=== PATIENT | female | born 2000 | race Caucasian/White ===

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

== ENCOUNTER 2022-07-17 20:10 | Emergency (ER) | payer SELFPAY ==
[~2022-07-17] VITALS: Ht 167 cm; Wt 54.4 kg
--- NOTE | 2022-07-17 20:41 | ED Cardiac General ---
History of Present Illness General Chief Complaint: Cardiac/General Problems Stated Complaint: HEART PALPITATIONS Source: patient Exam Limitations: no limitations History of Present Illness Date Seen by Provider: Jul 17, 2022 Time Seen by Provider: 20:33 Initial Comments 22-year-old female who is otherwise healthy presents for palpitations. She saw Dr. Mcconnell over a year ago for similar symptoms but it seemed to get better so she did not follow-up. It was recommended she get a Holter monitor but she did not have it completed. She comes in because she got a persistent tachycardia alert from her watch. She states her heart rates been in the 160s off-and-on for the last several hours though averaging around 1 20-1 30. She feels palpitations but no chest pain. No shortness of breath. No dizziness or lightheadedness. No heavy menses or other bleeding. She does use up to 200 mg of caffeine daily by drinking energy drinks. I asked her very explicitly about any other medications supplements or illicit substances. She denies this however she did tell the nurse that she had taken Adderall this morning. She has taken this in the past did not have similar issues. All other systems reviewed and negative except documented per HPI. Voice recognition software was used to help create this chart Allergies and Home Medications Allergies Uncoded Allergies: NKDA (Allergy, Mild, 03/09/09) Patient Home Medication List Home Medication List Reviewed: Yes No Active Prescriptions or Reported Meds Review of Systems Review of Systems Constitutional: no symptoms reported Past Feeonaf-Uteuba-Uxozhb Hx Patient Social History Tobacco Use?: No Use of E-Cig and/or Vaping dev: No Substance use?: No Alcohol Use?: No Immunizations Up To Date Tetanus Booster (TDap): Less than 5yrs PED Vaccines UTD: Yes Seasonal Allergies Seasonal Allergies: No Past Medical History Surgeries: No Respiratory: No Cardiac: Yes (Msrfans syndrome trait.) Neurological: No Reproductive Disorders: No Female Reproductive Disorders: Denies Sexually Transmitted Disease: No HIV/AIDS: No Gastrointestinal: No Musculoskeletal: No Endocrine: No Cancer: No Psychosocial: No Integumentary: No Blood Disorders: No Adverse Reaction/Blood Tranf: No Family Medical History Reviewed Nursing Family Hx Alcoholism 19 FATHER (grandfather ) Cancer of mouth 19 MOTHER (great grandpa) Cardiovascular disease 19 MOTHER (great grand parents) Congenital heart disease G8 BROTHER Diabetes mellitus 19 FATHER (uncle) Headache disorder 19 MOTHER Hypercholesterolemia 19 MOTHER Kidney disease 19 FATHER (uncle) Parkinson's disease 19 MOTHER (great grandparents) Severe allergy 19 MOTHER G8 SISTER Thyroid disease 19 MOTHER No Pertinent Family Hx Physical Exam Vital Signs Vital Signs - First Documented 07/17/22 20:38 Temp 37.0 Pulse 131 Resp 22 B/P (MAP) 148/83 (104) Capillary Refill : Height, Weight, BMI Height: 5'6.00" Weight: 110lbs. oz. [id number]; 14.06 BMI Method:Stated General Appearance: No Apparent Distress, WD/WN HEENT: Normal ENT Inspection, Pharynx Normal Neck: Full Range of Motion, Normal Inspection, Non Tender, Supple Respiratory: Chest Non Tender, Lungs Clear, Normal Breath Sounds, No Accessory Muscle Use, No Respiratory Distress Cardiovascular: Regular Rate, Rhythm, No Murmur, Normal Peripheral Pulses Gastrointestinal: Normal Bowel Sounds, No Organomegaly, No Pulsatile Mass, Non Tender, Soft Extremity: Normal Capillary Refill, Normal Inspection, Normal Range of Motion, Non Tender, No Calf Tenderness Neurologic/Psychiatric: Alert, Oriented x3 Skin: Normal Color, Warm/Dry Progress/Results/Core Measures Results/Orders Lab Results Laboratory Tests Test 07/17/22 20:28 Range/Units White Blood Count 6.8 4.3-11.0 10^3/uL Red Blood Count 4.69 3.80-5.11 10^6/uL Hemoglobin 14.9 11.5-16.0 g/dL Hematocrit 41 35-52 % Mean Corpuscular Volume 86 80-99 fL Mean Corpuscular Hemoglobin 32 25-34 pg Mean Corpuscular Hemoglobin Concent 37 H 32-36 g/dL Red Cell Distribution Width 11.5 10.0-14.5 % Platelet Count 253 130-400 10^3/uL Mean Platelet Volume 10.9 9.0-12.2 fL Immature Granulocyte % (Auto) 0 % Neutrophils (%) (Auto) 74 42-75 % Lymphocytes (%) (Auto) 14 12-44 % Monocytes (%) (Auto) 10 0-12 % Eosinophils (%) (Auto) 1 0-10 % Basophils (%) (Auto) 1 0-10 % Neutrophils # (Auto) 5.0 1.8-7.8 10^3/uL Lymphocytes # (Auto) 1.0 1.0-4.0 10^3/uL Monocytes # (Auto) 0.7 0.0-1.0 10^3/uL Eosinophils # (Auto) 0.1 0.0-0.3 10^3/uL Basophils # (Auto) 0.1 0.0-0.1 10^3/uL Immature Granulocyte # (Auto) 0.0 0.0-0.1 10^3/uL Sodium Level 141 135-145 MMOL/L Potassium Level 3.3 L 3.6-5.0 MMOL/L Chloride Level 108 H 98-107 MMOL/L Carbon Dioxide Level 19 L 21-32 MMOL/L Anion Gap 14 5-14 MMOL/L Blood Urea Nitrogen 11 7-18 MG/DL Creatinine 0.81 0.60-1.30 MG/DL Estimat Glomerular Filtration Rate 106 BUN/Creatinine Ratio 14 Glucose Level 133 H 70-105 MG/DL Calcium Level 9.6 8.5-10.1 MG/DL Human Chorionic Gonadotropin, Quant < 5 <5 MIU/ML My Orders Orders - IZZYELSY Hubbard DO Basic Metabolic Panel (07/17/22 20:37) Cbc With Automated Diff (07/17/22 20:37) Hcg,Quantitative (07/17/22 20:37) Ns Iv 1000 Ml (Sodium Chloride 0.9%) (07/17/22 20:45) Ekg Tracing (07/17/22 20:41) Vital Signs/I&O 07/17/22 20:38 Temp 37.0 Pulse 131 Resp 22 B/P (MAP) 148/83 (104) Comment Sinus tachycardia with rate of 112 bpm. Normal intervals. Normal axis. No ST or T wave abnormalities. No ectopy. No STEMI. Departure Communication (Admissions) Patient does have sinus tachycardia. No infectious type symptoms. She did use an Adderall this morning which certainly may have contributed. She also uses significant amount of caffeine in the day. Advised to refrain from both and follow-up with Dr. Mcconnell for the previously recommended Holter monitor. No evidence for dysrhythmia outside of sinus tachycardia. She is discharged in stable condition for Impression Primary Impression: Sinus tachycardia Disposition: 01 HOME, SELF-CARE Condition: Stable Departure-Patient Inst. Referrals: [facility] (PCP/Family) Primary Care Physician Patient Instructions: Tachycardia (DC) Add. Discharge Instructions: Refrain from caffeine use. Adderall may worsen your elevated heart rates. Follow-up with Dr. Mcconnell for likely Holter monitor and other testing. Return to the emergency department for any severe concerns. All discharge instructions reviewed with patient and/or family. Voiced un derstanding. Scripts No Active Prescriptions or Reported Meds ELSY MAGANA DO Jul 17, 2022 20:41
[2022-07-17 20:44] LABS: BASOPHILS # (AUTO) 0.1 10^3/uL (0.0-0.1); BASOPHILS % (AUTO) 1 % (0-10); EOSINOPHILS # (AUTO) 0.1 10^3/uL (0.0-0.3); EOSINOPHILS % (AUTO) 1 % (0-10); HEMATOCRIT 41 % (35-52); HEMOGLOBIN 14.9 g/dL (11.5-16.0); LYMPHOCYTES % (AUTO) 14 % (12-44); MEAN CORPUSCULAR HEMOGLOBIN 32 pg (25-34); MEAN CORPUSCULAR HGB CONC 37 g/dL (32-36); MEAN CORPUSCULAR VOLUME 86 fL (80-99); MEAN PLATELET VOLUME 10.9 fL (9.0-12.2); MONOCYTES # (AUTO) 0.7 10^3/uL (0.0-1.0); MONOCYTES % (AUTO) 10 % (0-12); NEUTROPHILS % (AUTO) 74 % (42-75); PLATELET COUNT 253 10^3/uL (130-400); WHITE BLOOD COUNT 6.8 10^3/uL (4.3-11.0)
[2022-07-17] MEDS ORDERED: NS IV 1000 ML 1,000 ML IV SCH (20:45)
[2022-07-17 20:46] LABS: CHLORIDE 108 MMOL/L (98-107); POTASSIUM 3.3 MMOL/L (3.6-5.0); SODIUM 141 MMOL/L (135-145)
[2022-07-17 20:47] LABS: CALCIUM 9.6 MG/DL (8.5-10.1)
[2022-07-17 20:48] LABS: GLUCOSE 133 MG/DL (70-105)
[2022-07-17 20:49] LABS: CARBON DIOXIDE 19 MMOL/L (21-32)
[2022-07-17 20:52] LABS: CREATININE SERUM 0.81 MG/DL (0.60-1.30); GFR ESTIMATED 106
[2022-07-17 20:53] LABS: BUN/CREATININE RATIO 14
[2022-07-17 22:17] VITALS: BP 117/75
== END 2022-07-17 22:00 | disposition home or self-care (01) ==
LOC: EDUNIT# 20:10 → ER 20:12
DX: R00.0 Tachycardia, unspecified (principal)
CPT/HCPCS: 36415; 80048; 84702; 85025; 93005